=== PATIENT | female | born 1995 | race Caucasian/White ===

== ENCOUNTER → 2024-05-06 15:01 | Outpatient (CLI) | payer OTHER, SELFPAY ==
[2024-05-06 16:52] LABS: Urine Chlamydia NOT DETECTED; Urine N gonorrhoeae NOT DETECTED
== END ==
PROVIDERS: Visit Provider Obstetrics & Gynecology
DX: Z34.91 Encounter for supervision of normal pregnancy, unspecified, first trimester (principal)
CPT/HCPCS: 87491; 87591

== ENCOUNTER → 2024-05-16 11:02 | Outpatient (CLI) | payer OTHER, SELFPAY ==
--- NOTE | 2024-05-16 11:03 | DI.US.S_ITS ---
PROCEDURE: US OB LIMITED INDICATIONS: bleeding in late first trimester, assess for YULIYA OUTSIDE/PRIOR DATING DATA: Last menstrual period (LMP): 01/31/2024. LMP-based estimated date of delivery (TAMMIE): 11/06/2024. First dating scan (date and location): 05/06/2024. Estimated date of delivery (TAMMIE) from first dating scan: 11/10/2024. The calculations are made using the clinical TAMMIE of 11/06/2024. TECHNIQUE: Real-time scanning was performed of the fetus, with image documentation. Endovaginal scanning: Performed. COMPARISON: None. FINDINGS: A single living intrauterine gestation is present. Presentation: Transverse Placenta: Placental position is posterior, without previa. Low lying placenta, with the inferior margin of the placenta approximately 0.7 cm from the internal os Amniotic fluid index: 12.1 cm, normal range is 5-24 cm. Single deepest vertical pocket is 5.1 cm. heart rate: 155 beats per minute. Maternal cervical canal: 3.9 cm long. Normal lower limit is 2.5 cm. Clinically estimated gestational age: 15 weeks 1 day IMPRESSION: Single living intrauterine at 15 weeks 1 day, TAMMIE 09/05/2025. Low lying placenta, with the inferior margin of the placenta approximately 0.7 cm from the internal os. Dictated by: Constantin Ahmadi M.D. on 05/17/2024 at 9:56 Approved by: Constantin Ahmadi M.D. on 05/17/2024 at 9:58
[2024-05-16 13:33] LABS: Add Manual Diff / Slide Review NO; Basophils Absolute Auto 0 /uL (0-100); Basophils Percent Auto 0.4 % (0-2); Eosinophils Absolute Auto 0 /uL (0-450); Eosinophils Percent Auto 0.7 % (2-4); Hematocrit 38.3 % (36-46); Hemoglobin 13.1 g/dL (12.0-16.0); Lymphocytes Absolute Auto 1900 /uL (1100-4500); Lymphocytes Percent Auto 27.1 % (25-40); Mean Corpuscular HGB Conc 34.1 % (30-36); Mean Corpuscular Volume 84.9 fL (80-100); Monocytes Absolute Auto 400 /uL (0-900); Monocytes Percent Auto 5.2 % (3-14); Neutrophils Absolute Auto 4800 /uL (1500-7000); Neutrophils Percent Auto 66.6 % (50-75); Platelet Count 260 X10^3/uL (150-400); Red Blood Cell Count 4.51 X10^6/uL (4.0-5.2); White Blood Cell Count 7.2 X10^3/uL (4.5-11.0)
[2024-05-16 13:53] LABS: Alanine Aminotransferase 14 IU/L (<35); Aspartate Aminotransferase 25 IU/L (14-36); BUN Creatinine Ratio 15.1 (6-22); Blood Urea Nitrogen 8 mg/dL (7-17); Estimated Glomerular Filt Rate > 60 mL/min (>60); Uric Acid 4.8 mg/dL (2.5-6.2)
[2024-05-16 18:12] LABS: HIV 1 & 2 Ab/Ag 4th Gen Combo NEGATIVE (NEGATIVE); Hep C Virus Ab w/Reflex Quant NEGATIVE s/c (NEGATIVE)
[2024-05-16 18:13] LABS: Hepatitis B Surface Antigen NEGATIVE s/c (NEGATIVE); Rubella Antibody IgG 12.4 IU/mL (>15)
[2024-05-17 06:11] LABS: RPR Screen Non Reactive (Non Reactive)
[2024-05-17 12:13] LABS: Varicella IgG Antibody 2456 index (Immune >165)
== END ==
PROVIDERS: Referring Provider Obstetrics & Gynecology; Visit Provider Obstetrics & Gynecology
DX: O20.9 Hemorrhage in early pregnancy, unspecified (principal); O09.292 Supervision of pregnancy with other poor reproductive or obstetric history, second trimester; O99.282 Endocrine, nutritional and metabolic diseases complicating pregnancy, second trimester; E28.2 Polycystic ovarian syndrome; O44.42 Low lying placenta NOS or without hemorrhage, second trimester; Z3A.15 15 weeks gestation of pregnancy
CPT/HCPCS: 36415; 76815; 76817; 80055; 82565; 83036; 84450; 84460; 84520; 84550; 86787; 86803; 86850; 86900; 86901; 87086; 87389

== ENCOUNTER → 2024-05-26 12:13 | Outpatient (CLI) | payer OTHER, SELFPAY ==
[2024-05-26 14:00] LABS: Alanine Aminotransferase 15 IU/L (<35); Albumin 4.2 g/dL (3.5-5.0); Albumin Globulin Ratio 1.4 (1.0-2.8); Alkaline Phosphatase 64 U/L (38-126); Aspartate Aminotransferase 23 IU/L (14-36); BUN Creatinine Ratio 10.4 (6-22); Bilirubin Total 0.4 mg/dL (0.2-1.3); Blood Urea Nitrogen 5 mg/dL (7-17); Calcium 9.6 mg/dL (8.4-10.2); Carbon Dioxide 22 mmol/L (22-32); Chloride 105 mmol/L (98-107); Estimated Glomerular Filt Rate > 60 mL/min (>60); Globulin 3.1 g/dL (1.7-4.1); Glucose 78 mg/dL (70-100); HEMOLYSIS < 15 (0-50); Potassium 3.5 mmol/L (3.4-5.1); Sodium 135 mmol/L (137-145); Total Protein 7.3 g/dL (6.3-8.2)
[2024-05-28 21:07] LABS: AFP Value 29.8 ng/mL (.); Gest Age on Col Date 16.6 weeks (.); Insulin Dep Diabetes No (.); OSBR Risk 1IN 10000 (.); Results Report (.); Test Results *Screen Negative* (.)
== END ==
PROVIDERS: Referring Provider Obstetrics & Gynecology; Visit Provider Obstetrics & Gynecology
DX: E23.2 Diabetes insipidus (principal); O09.299 Supervision of pregnancy with other poor reproductive or obstetric history, unspecified trimester; Z3A.16 16 weeks gestation of pregnancy
CPT/HCPCS: 36415; 80053; 82105

== ENCOUNTER 2024-07-04 10:52 | Observation (INO) | payer OTHER, SELFPAY ==
[2024-07-04 11:54] LABS: Add Manual Diff / Slide Review NO; Basophils Absolute Auto 0 /uL (0-100); Basophils Percent Auto 0.7 % (0-2); Eosinophils Absolute Auto 100 /uL (0-450); Hematocrit 34.3 % (36-46); Hemoglobin 11.7 g/dL (12.0-16.0); Lymphocytes Absolute Auto 2100 /uL (1100-4500); Lymphocytes Percent Auto 30.7 % (25-40); Mean Corpuscular Hemoglobin 28.7 PG (26-34); Mean Corpuscular Volume 84.5 fL (80-100); Monocytes Absolute Auto 500 /uL (0-900); Monocytes Percent Auto 6.6 % (3-14); Neutrophils Absolute Auto 4200 /uL (1500-7000); Platelet Count 250 X10^3/uL (150-400); Red Blood Cell Count 4.06 X10^6/uL (4.0-5.2); Red Cell Distribution Width 13.7 % (11.6-14.8); White Blood Cell Count 6.9 X10^3/uL (4.5-11.0)
[2024-07-04 11:59] LABS: Creatinine Urine Random 43.63 mg/dL; Protein (Total) Urine Random 7 mg/dL (0-12); Protein Creatinine Ratio Urine 0.16 GRAM/24H
[2024-07-04 12:05] LABS: Alanine Aminotransferase 16 IU/L (<35); Albumin 4.1 g/dL (3.5-5.0); Albumin Globulin Ratio 1.3 (1.0-2.8); Alkaline Phosphatase 71 U/L (38-126); Aspartate Aminotransferase 23 IU/L (14-36); BUN Creatinine Ratio 11.4 (6-22); Bilirubin Total 0.4 mg/dL (0.2-1.3); Blood Urea Nitrogen 5 mg/dL (7-17); Calcium 9.3 mg/dL (8.4-10.2); Carbon Dioxide 23 mmol/L (22-32); Chloride 105 mmol/L (98-107); Estimated Glomerular Filt Rate > 60 mL/min (>60); Globulin 3.2 g/dL (1.7-4.1); Glucose 74 mg/dL (70-100); HEMOLYSIS < 15 (0-50); Potassium 3.7 mmol/L (3.4-5.1); Sodium 136 mmol/L (137-145); Total Protein 7.3 g/dL (6.3-8.2); Uric Acid 4.2 mg/dL (2.5-6.2)
--- NOTE | 2024-07-04 12:26 | P.TNLD_ITS ---
Visit Information Visit Information Date of evaluation: 07/04/24 Primary OB Provider: Sonia Nguyen On-call OB Provider: Ileana Hazel Reason for Evaluation: Yes other Comments/Additional reasons for admission: 7 para 2 at 22 weeks by dates with significant medical issues after brain tumor removal who comes in complaining of severe headache that is not going away previously, pain on the right side of her neck that comes and goes, nausea and vomiting and elevated blood pressures. Vital Signs Vital Signs: Patient was here for approximately 1 hour. Blood pressure 125/72 to 146/80. Temperature 36.3?. Pulse 100 PFSH Medical History (Updated 07/04/24 @ 12:51 by Ileana Hazel MD) Antepartum bleeding, first trimester Craniopharyngioma (~2015) IUGR (intrauterine growth restriction) Preeclampsia Surgical History (Updated 04/26/24 @ 16:04 by Irina Smith RN) History of tonsillectomy History of removal of skin mole [place] teeth extracted Status post breast reduction History of craniotomy Family History (Updated 04/26/24 @ 15:47 by Irina Smith RN) Father Heart attack Hypertension Mother Hypothyroidism Diabetes mellitus Hypertension Hyperlipidemia Brother Crohn's disease Grandmother Breast cancer Social History marital status: number of children: 2 household members: spouse and children lives independently: Yes caregiver/support person: Yes housing: house pets and animals: No education level: college occupational status: employed current occupational exposures/hazards: Yes special maxi needs: No travel history: recent seatbelt use: always water heater temp set < 120 deg: Yes working smoke detector in home: Yes fire extinguisher in home: Yes carbon monox detector in home: Yes firearms in home: Yes firearms unloaded and locked: Yes do you feel safe at home: Yes Smoking Status: Never smoker second hand exposure: No alcohol intake: former substance use type: does not use during the past year weight has: other well-balanced diet: daily or most days daily servings fruits/ve or more times/day caffeine: Yes Type(s) of exercise: walking frequency: daily duration: 15-30 minutes/day Review of Systems Review of Systems Narrative: Patient denies any visual changes. Headache is similar just not going away as previously. Complains of intermittent right neck pain. Patient has nausea and occasional vomiting when she has her pain. Patient states at home when she checks her blood pressure when she is in pain her blood pressure can be diastolic of over 100. Other times her blood pressure is normal. Patient denies epigastric pain. No vaginal bleeding. Patient is still not feeling the baby move yet. Exam Narrative Exam Narrative: HEENT exam within normal limits. Pupils are equal and reactive to light. Cranial nerves intact. No masses or tenderness in the area the right anterior neck where the patient states she has been having pain that comes and goes. Lungs are clear to auscultation percussion. Heart is regular rate and rhythm no S3-S4 murmurs. Abdomen is soft, nontender. heart tones 156. Extremities without edema and nontender. Objective Labs 07/04/24 11:40 07/04/24 11:40 Labs: Laboratory Results - last 24 hr 07/04/24 07/04/24 11:00 11:40 WBC 6.9 RBC 4.06 Hgb 11.7 L Hct 34.3 L MCV 84.5 MCH 28.7 MCHC 34.0 RDW 13.7 Plt Count 250 Neut % (Auto) 61.0 Lymph % (Auto) 30.7 [place] % (Auto) 6.6 Eos % (Auto) 1.0 L Baso % (Auto) 0.7 Neut # (Auto) 4200 Lymph # (Auto) 2100 [place] # (Auto) 500 Eos # (Auto) 100 Baso # (Auto) 0 Sodium 136 L Potassium 3.7 Chloride 105 Carbon Dioxide 23 BUN 5 L Creatinine 0.44 L Estimated GFR > 60 BUN/Creatinine Ratio 11.4 Glucose 74 Uric Acid 4.2 Calcium 9.3 Total Bilirubin 0.4 AST 23 ALT 16 Alkaline Phosphatase 71 Total Protein 7.3 Albumin 4.1 Globulin 3.2 Albumin/Globulin Ratio 1.3 U Random Total Protein 7 Urine Creatinine 43.63 Protein/Creatinin Ratio 0.16 Evaluation Evaluation Baseline heart rate: 156 Category of Tracing: Appropriate for gestational age Diagnosis, Plan/Disposition Final Diagnosis (1) Hypertension affecting in second trimester: Status: Acute (2) History of pre-eclampsia: Status: Acute (3) Migraine: Status: Acute Problem details: frequent; started w/ brain surgery, much worse since 2nd baby, hasn't found any useful Tx. Planning to establish @ headache clinic soon. (4) 22 weeks gestation of : Status: Acute (5) IUGR (intrauterine growth restriction): Status: Acute Problem details: 1st baby 4lb 10oz, 2nd 5lb Plan/Disposition Plan: Patient with negative PIH labs. Patient unable to take nonsteroidal anti- inflammatories. She has had no relief in the past with migraine Triptan medications, she is currently taking Tylenol and oxycodone. Patient has neck pain maybe muscle spasms. Prescription for cyclobenzaprine sent to her pharmacy. Patient very tearful that her baby is IUGR. She was on blood pressure medicine her last but has not been started on blood pressure medicine this because most of the time her blood pressure is better. Prescription for labetalol 100 mg b.i.d. she is as well as nifedipine 10 [address] could [address] under the tongue for an elevated blood pressure sent to her pharmacy. She does have an appointment with [facility] in 2 weeks. Advised her she could call them to discuss whether she should start the blood pressure medicine or not. Note written for patient to be off work the rest of and a note written to allow her to take off work so he can care for their 2 children while she takes her medications. OB Disposition: home
== END 2024-07-04 12:26 | disposition home or self-care (01) ==
PROVIDERS: Specialist; Admitting Provider Obstetrics & Gynecology; Referring Provider Obstetrics & Gynecology; Visit Provider Obstetrics & Gynecology
DX: O16.2 Unspecified maternal hypertension, second trimester (principal); O36.5920 Maternal care for other known or suspected poor fetal growth, second trimester, not applicable or unspecified; G43.909 Migraine, unspecified, not intractable, without status migrainosus; O99.352 Diseases of the nervous system complicating pregnancy, second trimester; Z87.59 Personal history of other complications of pregnancy, childbirth and the puerperium; Z3A.22 22 weeks gestation of pregnancy
CPT/HCPCS: 80053; 84550; 85025; G0378; G0379

== ENCOUNTER → 2024-08-10 10:35 | Outpatient (CLI) | payer OTHER, SELFPAY ==
[2024-08-10 12:57] LABS: GTT (PREG) 1 Hour PP 50gm Dose 85 mg/dL (76-139)
[2024-08-10 13:01] LABS: Hemoglobin 10.2 g/dL (12.0-16.0)
== END ==
PROVIDERS: Referring Provider Obstetrics & Gynecology; Visit Provider Obstetrics & Gynecology
DX: Z34.82 Encounter for supervision of other normal pregnancy, second trimester (principal); Z3A.26 26 weeks gestation of pregnancy
CPT/HCPCS: 36415; 82950; 85014; 85018

== ENCOUNTER 2024-08-25 11:32 | Outpatient (CLI) | payer OTHER, SELFPAY | END 2024-08-25 12:15 | disposition home or self-care (01) | LOC: OB 08-29 08:45 | PROVIDERS: Referring Provider Obstetrics & Gynecology; Visit Provider Obstetrics & Gynecology | DX: O10.913 Unspecified pre-existing hypertension complicating pregnancy, third trimester (principal); O36.5930 Maternal care for other known or suspected poor fetal growth, third trimester, not applicable or unspecified; O32.1XX0 Maternal care for breech presentation, not applicable or unspecified; Z3A.29 29 weeks gestation of pregnancy | CPT/HCPCS: 59025; G0378; G0379 ==

== ENCOUNTER 2024-09-05 09:17 | Outpatient (CLI) | payer OTHER, SELFPAY | END 2024-09-05 10:10 | disposition home or self-care (01) | LOC: OB 09-06 08:10 | PROVIDERS: Referring Provider Obstetrics & Gynecology; Visit Provider Obstetrics & Gynecology | DX: O10.913 Unspecified pre-existing hypertension complicating pregnancy, third trimester (principal); O36.5930 Maternal care for other known or suspected poor fetal growth, third trimester, not applicable or unspecified; O32.1XX0 Maternal care for breech presentation, not applicable or unspecified; Z3A.31 31 weeks gestation of pregnancy | CPT/HCPCS: 59025; G0378; G0379 ==

== ENCOUNTER 2024-09-08 11:06 | Outpatient (CLI) | payer OTHER, SELFPAY | END 2024-09-08 12:28 | disposition home or self-care (01) | LOC: OB 09-13 08:33 | PROVIDERS: Referring Provider Obstetrics & Gynecology; Visit Provider Obstetrics & Gynecology | DX: O26.893 Other specified pregnancy related conditions, third trimester (principal); R10.9 Unspecified abdominal pain; O10.913 Unspecified pre-existing hypertension complicating pregnancy, third trimester; O36.5930 Maternal care for other known or suspected poor fetal growth, third trimester, not applicable or unspecified; Z3A.31 31 weeks gestation of pregnancy | CPT/HCPCS: 59025; G0378; G0379 ==

== ENCOUNTER 2024-09-12 10:25 | Observation (INO) | payer OTHER, SELFPAY | END 2024-09-12 11:00 | disposition home or self-care (01) | PROVIDERS: Admitting Provider Obstetrics & Gynecology; Referring Provider Obstetrics & Gynecology; Visit Provider Obstetrics & Gynecology | DX: O10.913 Unspecified pre-existing hypertension complicating pregnancy, third trimester (principal); O36.5930 Maternal care for other known or suspected poor fetal growth, third trimester, not applicable or unspecified; Z3A.32 32 weeks gestation of pregnancy | CPT/HCPCS: 59025; G0378; G0379 ==

== ENCOUNTER 2024-09-19 10:18 | Outpatient (CLI) | payer OTHER, SELFPAY ==
--- NOTE | 2024-09-19 11:51 | P.TNLD_ITS ---
Visit Information Visit Information Date of evaluation: 09/19/24 Primary OB Provider: Sonia Nguyen Reason for Evaluation: Yes non-stress test non-stress test reason: other (FGR) [facility] Medical History (Updated 09/19/24 @ 10:27 by Sonia Nguyen MD) Antepartum bleeding, first trimester Craniopharyngioma (~2016) IUGR (intrauterine growth restriction) Preeclampsia Surgical History (Updated 04/26/24 @ 16:04 by Irina Smith RN) History of tonsillectomy History of removal of skin mole [place] teeth extracted Status post breast reduction History of craniotomy Family History (Updated 04/26/24 @ 15:47 by Irina Smith RN) Father Heart attack Hypertension Mother Hypothyroidism Diabetes mellitus Hypertension Hyperlipidemia Brother Crohn's disease Grandmother Breast cancer Social History marital status: number of children: 2 household members: spouse and children lives independently: Yes caregiver/support person: Yes housing: house pets and animals: No education level: college occupational status: employed current occupational exposures/hazards: Yes special maxi needs: No travel history: recent seatbelt use: always water heater temp set < 120 deg: Yes working smoke detector in home: Yes fire extinguisher in home: Yes carbon monox detector in home: Yes firearms in home: Yes firearms unloaded and locked: Yes do you feel safe at home: Yes Smoking Status: Never smoker second hand exposure: No alcohol intake: former substance use type: does not use during the past year weight has: other well-balanced diet: daily or most days daily servings fruits/ve or more times/day caffeine: Yes Type(s) of exercise: walking frequency: daily duration: 15-30 minutes/day Evaluation Evaluation Baseline heart rate: 155 Variability: Moderate (11-25) monitor accelerations: Prolonged (to 180's-200) Monitor Decelerations: Absent Status: Category l Comments: Pt has rash on right groin. Exam: Erythema with satellite lesions. Diagnosis, Plan/Disposition Plan/Disposition Plan: Assessment: 33+2 wks gestation Prolonged accelerations FGR Yeast of the skin of the right groin Plan: [facility] F/U with MFM tomorrow Nystatin oint to right groin BID for 10-14 days
== END 2024-09-19 11:45 | disposition home or self-care (01) ==
LOC: LABOR 11:48 → OB 09-22 06:09
PROVIDERS: Referring Provider Obstetrics & Gynecology; Visit Provider Obstetrics & Gynecology
DX: O36.8330 Maternal care for abnormalities of the fetal heart rate or rhythm, third trimester, not applicable or unspecified (principal); O98.813 Other maternal infectious and parasitic diseases complicating pregnancy, third trimester; B37.89 Other sites of candidiasis; Z3A.33 33 weeks gestation of pregnancy
CPT/HCPCS: 59025; G0378; G0379

== ENCOUNTER 2024-09-22 15:15 | Outpatient (CLI) | payer OTHER, SELFPAY ==
[2024-09-22 16:05] LABS: Creatinine Urine Random 20.55 mg/dL; Protein (Total) Urine Random 14 mg/dL (0-12); Protein Creatinine Ratio Urine 0.68 GRAM/24H
[2024-09-22 16:12] LABS: Add Manual Diff / Slide Review NO; Basophils Absolute Auto 0 /uL (0-100); Basophils Percent Auto 0.3 % (0-2); Eosinophils Absolute Auto 0 /uL (0-450); Eosinophils Percent Auto 0.2 % (2-4); Hematocrit 34.3 % (36-46); Hemoglobin 11.4 g/dL (12.0-16.0); Lymphocytes Absolute Auto 2700 /uL (1100-4500); Lymphocytes Percent Auto 24.5 % (25-40); Mean Corpuscular HGB Conc 33.2 % (30-36); Mean Corpuscular Hemoglobin 28.4 PG (26-34); Mean Corpuscular Volume 85.5 fL (80-100); Monocytes Absolute Auto 800 /uL (0-900); Monocytes Percent Auto 7.5 % (3-14); Neutrophils Absolute Auto 7300 /uL (1500-7000); Neutrophils Percent Auto 67.5 % (50-75); Platelet Count 212 X10^3/uL (150-400); Red Blood Cell Count 4.01 X10^6/uL (4.0-5.2); Red Cell Distribution Width 19.7 % (11.6-14.8); White Blood Cell Count 10.8 X10^3/uL (4.5-11.0)
[2024-09-22 16:24] LABS: Alanine Aminotransferase 28 IU/L (<35); Albumin 3.5 g/dL (3.5-5.0); Albumin Globulin Ratio 1.1 (1.0-2.8); Alkaline Phosphatase 88 U/L (38-126); Aspartate Aminotransferase 32 IU/L (14-36); BUN Creatinine Ratio 17.1 (6-22); Bilirubin Total 0.3 mg/dL (0.2-1.3); Blood Urea Nitrogen 7 mg/dL (7-17); Calcium 9.1 mg/dL (8.4-10.2); Carbon Dioxide 21 mmol/L (22-32); Chloride 105 mmol/L (98-107); Estimated Glomerular Filt Rate > 60 mL/min (>60); Globulin 3.1 g/dL (1.7-4.1); Glucose 91 mg/dL (70-100); HEMOLYSIS < 15 (0-50); Potassium 3.6 mmol/L (3.4-5.1); Sodium 132 mmol/L (137-145); Total Protein 6.6 g/dL (6.3-8.2)
== END 2024-09-22 17:03 | disposition home or self-care (01) ==
LOC: OB 09-23 10:11
PROVIDERS: Referring Provider Obstetrics & Gynecology; Visit Provider Obstetrics & Gynecology
DX: O10.913 Unspecified pre-existing hypertension complicating pregnancy, third trimester (principal); O36.5930 Maternal care for other known or suspected poor fetal growth, third trimester, not applicable or unspecified; Z3A.33 33 weeks gestation of pregnancy
CPT/HCPCS: 36415; 59025; 80053; 82570; 84156; 85025; G0378; G0379

== ENCOUNTER 2024-09-23 18:13 | Inpatient (IN) | payer OTHER, SELFPAY ==
--- NOTE | 2024-09-23 18:34 | P.HPOB_ITS ---
OB HPI Date/Time Date of admission: 09/23/24 Date Patient Seen: 09/23/24 Time Patient Seen: 18:35 History of Present Condition Chief complaint: labor TAMMIE Calculator 2 Estimated Delivery Date Method Current WG Current Estimate 11/06/24 LMP (Uncertain) 33w 5d Other Estimates 11/12/24 Ultrasound #1 32w 6d Estimated Gestational Age (weeks): 33+5 : 7 Para: 2 care: good care, initiated at week # (10), number of visits (10) and pounds weight gain (16) Dating criteria OB: LMP confirmed by 1st trimester US Ultrasounds: normal 1st trimester US and abnormal US findings (echogenic bowel) Obstetrical complications: gestational hypertension (on Labetolol 100mg BID) and growth restriction (4%ile ) Medical complications OB: neurological (chronic debilitating migraines, empty sella syndrome, diabetes insipidus) Preadmission Labs Last OB Lab Results: 2 Blood Type O Positive 05/16/24 12:17 Antibody Screen Negative 05/16/24 12:17 Hct 36.6 % (36-46) 09/23/24 19:05 Hgb 12.2 g/dL (12.0-16.0) 09/23/24 19:05 Hep Bs Antigen Negative s/c (NEGATIVE) 05/16/24 12:17 Hepatitis C Antibody Negative s/c (NEGATIVE) 05/16/24 12:17 Rubella Antibody 12.4 IU/mL (>15) L 05/16/24 12:17 VZV IgG Antibody 2456 index (Immune >165) 05/16/24 12:17 Glucose 1 Hr 50 gm 85 mg/dL (76-139) 08/10/24 12:21 Hemoglobin A1c 5.0 % (4.0-6.0) 05/16/24 12:17 -: Chlamydia screen: negative, Gonorrhea screen: negative and Urine: negative -: PAP smear: Normal Genetic Screens: Cell-free DNA: Normal (low risk female) and Alpha-fetoprotein: Normal External Labs -: Urine: negative Prior (ies) Past Pregnancies Del. Date GA/Weeks Labor Lgth Wt Sex Route Outcome Anesthesia Place Delv Breastfeed Preg Comp Name 12/22/20 36.6 4 lb 10 oz Female vaginal live - epidural [facility] Attempted intrauterine growth restr induced hyper- [place] 03/21/21 6-8 spontaneous 06/21/21 6-8 spontaneous 09/21/21 6-8 spontaneous 11/19/21 6-8 spontaneous 01/09/23 36.6 5 lb Male vaginal live - ep idural [facility] unable to produce pre-eclampsia intrauterine growth restr [place] Delivery Date: 03/21/21 Last Updated by: Irina Smith RN passed spontaneously, no complications Delivery Date: 06/21/21 Last Updated by: Irina Smith RN passed spontaneously, no complications Delivery Date: 09/21/21 Last Updated by: Irina Smith RN passed spontaneously, no complications Delivery Date: 11/19/21 Last Updated by: Irina Smith RN passed spontaneously, no complications Hx # Term Pregnancies: 0 Hx # Pregnancies: 2 Number of Living Children: 2 Multiple births: 0 Spontaneous abortions: 4 Ectopic pregnancies: 0 Elective abortions: 0 Evaluation Evaluation Baseline heart rate: 150 Variability: Moderate (11-25) monitor accelerations: Prolonged (episodes of prolonged tachy) Monitor Decelerations: Absent Contraction Frequency (minutes): 2 Uterine Contraction Intensity: Moderate Status: Category l Dilation (cm): 3 Effacement (%): 80 station: -1 Position of cervix: mid Consistency: soft [facility] Medical History (Updated 09/19/24 @ 10:27 by Sonia Nguyen MD) Antepartum bleeding, first trimester Craniopharyngioma (~2016) IUGR (intrauterine growth restriction) Preeclampsia Surgical History (Updated 04/26/24 @ 16:04 by Irina Smith RN) History of tonsillectomy History of removal of skin mole [place] teeth extracted Status post breast reduction History of craniotomy Family History (Updated 04/26/24 @ 15:47 by Irina Smith RN) Father Heart attack Hypertension Mother Hypothyroidism Diabetes mellitus Hypertension Hyperlipidemia Brother Crohn's disease Grandmother Breast cancer Social History marital status: number of children: 2 household members: spouse and children lives independently: Yes caregiver/support person: Yes housing: house pets and animals: No education level: college occupational status: employed current occupational exposures/hazards: Yes special maxi needs: No travel history: recent seatbelt use: always water heater temp set < 120 deg: Yes working smoke detector in home: Yes fire extinguisher in home: Yes carbon monox detector in home: Yes firearms in home: Yes firearms unloaded and locked: Yes do you feel safe at home: Yes Smoking Status: Never smoker second hand exposure: No alcohol intake: former substance use type: does not use during the past year weight has: other well-balanced diet: daily or most days daily servings fruits/ve or more times/day caffeine: Yes Type(s) of exercise: walking frequency: daily duration: 15-30 minutes/day Meds Home Medications and Allergies Home Medications Medication Instructions Recorded Confirmed Type hydrocortisone 20 mg tablet 20 mg PO DAILY 04/26/24 09/22/24 History vitamin-ferrous sulfate tab PO 04/26/24 09/22/24 History 27 mg iron-folic acid 0.8 mg tablet cyclobenzaprine 5 mg tablet 5 mg PO TID PRN muscle spasm #20 07/04/24 09/22/24 Rx tabs nifedipine 10 mg capsule 10 mg PO Q6H PRN hypertension #10 07/04/24 09/22/24 Rx caps metformin 1,000 mg tablet 1,000 mg PO BID Diabetes insipidus 07/20/24 09/22/24 Rx #60 tabs ondansetron 8 mg disintegrating 8 mg PO Q8H PRN nausea and 08/10/24 09/22/24 Rx tablet vomiting #30 tabs pantoprazole 40 mg tablet,delayed 40 mg PO DAILY #30 tabs 08/10/24 09/22/24 Rx release (Protonix) labetalol 100 mg tablet 100 mg PO BID for blood pressure 08/30/24 09/22/24 Rx #60 tabs oxycodone 10 mg tablet 10 mg PO BID PRN pain #30 tabs 09/08/24 09/22/24 Rx promethazine 25 mg tablet 25 mg PO TID PRN nausea #30 tabs 09/08/24 09/22/24 Rx nystatin 100,000 unit/gram topical 1 applic topical BID #30 grams 09/19/24 09/22/24 Rx ointment Allergies Allergy/AdvReac Type Severity Reaction Status Date / Time NSAIDS (Non-Steroidal Allergy Intermediate swelling Verified 09/22/24 14:19 Anti-Inflamma gadalinium Allergy Intermediate Hives Uncoded 09/22/24 14:19 OB Exam Narrative Exam Narrative: Generally: Patient is sitting up in bed, breathing through contractions Lungs: CTA bilat CV: RRR FH: 33 cm EFW: 3#5oz Ext: Trace edema Objective Labs 09/23/24 19:05 Assessment and Plan Assessment and Plan Assessment and Plan narrative: Assessment: 28 year old at 33+5 wks gestation in PTL complicated by FGR (4%ile) Gest HTN, chronic debilitating migraines, empty sella syndrome and adrenal insufficiency Plan: Amoxicillin 2 gm IV load and then 1 gm q 4 hours GBS swab obtained Indocin 50mg PO x 1, patient refused Will recheck cervix in 90 min, if no change, will transfer to Discussed with Dr. Solis Moore at Addendum: No cervical change in 2 hours Transfer to [facility] Discussed with Dr. Solis Moore Patient to go by Cayla BLACK Time-Based Coding :: [TOTAL MINUTES] spent with patient and on the chart (including review of chart, obtaining history, exam, reviewing outside data, placing orders, documenting exam and treatment plan, and counseling patient) on [DATE].
[2024-09-23 19:38] LABS: Add Manual Diff / Slide Review SLIDE REVIEW; Basophils Absolute Auto 100 /uL (0-100); Basophils Percent Auto 0.9 % (0-2); Eosinophils Absolute Auto 100 /uL (0-450); Eosinophils Percent Auto 0.5 % (2-4); Hematocrit 36.6 % (36-46); Hemoglobin 12.2 g/dL (12.0-16.0); Lymphocytes Absolute Auto 3400 /uL (1100-4500); Mean Corpuscular HGB Conc 33.5 % (30-36); Mean Corpuscular Hemoglobin 28.4 PG (26-34); Mean Corpuscular Volume 84.9 fL (80-100); Monocytes Absolute Auto 900 /uL (0-900); Monocytes Percent Auto 6.6 % (3-14); Neutrophils Absolute Auto 8700 /uL (1500-7000); Platelet Count 246 X10^3/uL (150-400); Red Blood Cell Count 4.31 X10^6/uL (4.0-5.2); Red Cell Distribution Width 19.8 % (11.6-14.8); White Blood Cell Count 13.1 X10^3/uL (4.5-11.0)
[2024-09-23] MEDS: AMPICILLIN 2,000 MG in SODIUM CHLORIDE 0.9% 100 ML 200 MG IV (20:49)
[2024-09-23 20:52] LABS: RBC Morphology Normal Morphology
[2024-09-23 20:53] LABS: Platelet Estimate Adequate on smear
[2024-09-23] MEDS: fentaNYL 100 MCG/2 ML INJ 50 MCG IV (21:15)
[2024-09-23] MEDS: ONDANSETRON 4 MG/2 ML INJ IV (21:15)
== END 2024-09-23 21:45 | disposition short-term general hospital (02) | DRG 998 ==
PROVIDERS: Admitting Provider Obstetrics & Gynecology; Referring Provider Obstetrics & Gynecology; Visit Provider Obstetrics & Gynecology
DX: O76 Abnormality in fetal heart rate and rhythm complicating labor and delivery (principal); O24.113 Pre-existing type 2 diabetes mellitus, in pregnancy, third trimester; E27.40 Unspecified adrenocortical insufficiency; O36.5930 Maternal care for other known or suspected poor fetal growth, third trimester, not applicable or unspecified; Z3A.33 33 weeks gestation of pregnancy; O13.3 Gestational [pregnancy-induced] hypertension without significant proteinuria, third trimester; Z79.84 Long term (current) use of oral hypoglycemic drugs; O99.891 Other specified diseases and conditions complicating pregnancy; G43.809 Other migraine, not intractable, without status migrainosus
CPT/HCPCS: 59050; 85025; 86850; 86900; 86901; 96360; G0379; J0290; J2405; J3010

== ENCOUNTER 2024-09-25 14:03 | Observation (INO) | payer OTHER, SELFPAY ==
[2024-09-25 14:44] LABS: Add Manual Diff / Slide Review NO; Basophils Absolute Auto 100 /uL (0-100); Basophils Percent Auto 0.6 % (0-2); Eosinophils Absolute Auto 0 /uL (0-450); Eosinophils Percent Auto 0.4 % (2-4); Hematocrit 39.9 % (36-46); Hemoglobin 12.9 g/dL (12.0-16.0); Lymphocytes Absolute Auto 2600 /uL (1100-4500); Lymphocytes Percent Auto 21.2 % (25-40); Mean Corpuscular HGB Conc 32.4 % (30-36); Mean Corpuscular Hemoglobin 27.8 PG (26-34); Mean Corpuscular Volume 85.8 fL (80-100); Monocytes Absolute Auto 800 /uL (0-900); Monocytes Percent Auto 6.3 % (3-14); Neutrophils Absolute Auto 8700 /uL (1500-7000); Neutrophils Percent Auto 71.5 % (50-75); Platelet Count 230 X10^3/uL (150-400); Red Blood Cell Count 4.65 X10^6/uL (4.0-5.2); Red Cell Distribution Width 19.7 % (11.6-14.8); White Blood Cell Count 12.2 X10^3/uL (4.5-11.0)
[2024-09-25] MEDS: fentaNYL 100 MCG/2 ML INJ 50 MCG IV ×2 (14:44→16:34)
[2024-09-25] MEDS: LACTATED RINGERS 1,000 ML 100 ML IV ×2 (14:44→15:51)
--- NOTE | 2024-09-25 14:47 | PM.OBHP.IH.1 ---
OB HPI Date/Time Date of admission: 09/25/24 Date Patient Seen: 09/25/24 Time Patient Seen: 14:30 History of Present Condition Chief complaint: OBS OF LABOR TAMMIE Calculator Estimated Delivery Date Method Current WG Current Estimate 11/06/24 LMP (Uncertain) 34w 0d Other Estimates 11/12/24 Ultrasound #1 33w 1d Narrative: 28yo at 34w0d D=9wk US presents with recurrent labor. 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 Pt had similar presentation to facility 09/23/24 with persistent painful contractions, no cervical bladder changer 2h observation and flown to [facility] for further observation (3cm dilation). Patient states she was discharged to home 09/24 after 16h of no cervical change (450/-3), s/p BMZ x2. Today patient states that contractions never fully resolved but had previously become less frequent/less painful. Painful contractions resumed at approximately 11am today q1-3min and patient presented to birthing center 3h thereafter for evaluation. She reports some scant vaginal bleeding, denies jordana LOF, dysuria, +FM care: good care (co-managed with [facility] (Dr. 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 involvement of DiGeorge region, risk for type 1 hyperprolactinemia)) Medical complications OB: neurological (h/o diabetes insipidus s/p resection of craniopharyngioma on chronic steroids) External History Prior Pregnancies: G1 - late PTB (36.6), preE with severe features, IUGR --> developmental delay G2-5 - first trimester SAB (6-8wga) G6 - late PTB (36.6), preE with severe features, IUGR --> developmental delay, hydrocephalus G7 - current : 7 Para: 2 Preadmission Labs Last OB Lab Results: Blood Type O Positive 09/25/24 14:25 Antibody Screen Negative 09/25/24 14:25 Hct 39.9 % (36-46) 09/25/24 14:25 Hgb 12.9 g/dL (12.0-16.0) 09/25/24 14:25 Hep Bs Antigen Negative s/c (NEGATIVE) 05/16/24 12:17 Hepatitis C Antibody Negative s/c (NEGATIVE) 05/16/24 12:17 Rubella Antibody 12.4 IU/mL (>15) L 05/16/24 12:17 VZV IgG Antibody 2456 index (Immune >165) 05/16/24 12:17 Glucose 1 Hr 50 gm 85 mg/dL (76-139) 08/10/24 12:21 Hemoglobin A1c 5.0 % (4.0-6.0) 05/16/24 12:17 -: Chlamydia screen: negative, Gonorrhea screen: negative and Urine: negative Genetic Screens: Cell-free DNA: Abnormal External Labs -: Urine: negative Prior (ies) Past Pregnancies Del. Date GA/Weeks Labor Lgth Wt Sex Route Outcome Anesthesia Place Delv Breastfeed Preg Comp Name 12/22/20 36.6 4 lb 10 oz Female vaginal live - epidural [facility] Attempted intrauterine growth restr induced hyper- [place] 03/21/21 6-8 spontaneous 06/21/21 6-8 spontaneous 09/21/21 6-8 spontaneous 11/19/21 6-8 spontaneous 01/09/23 36.6 5 lb Male vaginal live - epidural [facility] unable to produce pre-eclampsia intrauterine growth restr [place] Delivery Date: 03/21/21 Last Updated by: Irina Smith RN passed spontaneously, no complications Delivery Date: 06/21/21 Last Updated by: Irina Smith RN passed spontaneously, no complications Delivery Date: 09/21/21 Last Updated by: Irina Smith RN passed spontaneously, no complications Delivery Date: 11/19/21 Last Updated by: Irina Smith RN passed spontaneously, no complications Hx # Pregnancies: 2 Number of Living Children: 2 Evaluation Evaluation Baseline heart rate: 145 Variability: Moderate (11-25) monitor accelerations: Present Monitor Decelerations: Absent Contraction Frequency (minutes): 2 Uterine Contraction Intensity: Mild Category of Tracing: Reactive Status: Category l Dilation (cm): 4 Effacement (%): 50 station: -4 Position of cervix: mid Consistency: medium [facility] Medical History (Updated 09/19/24 @ 10:27 by Sonia Nguyen MD) Antepartum bleeding, first trimester Craniopharyngioma (~2016) IUGR (intrauterine growth restriction) Preeclampsia Surgical History (Updated 04/26/24 @ 16:04 by Irina Smith RN) History of tonsillectomy History of removal of skin mole [place] teeth extracted Status post breast reduction History of craniotomy Family History (Updated 04/26/24 @ 15:47 by Irina Smith RN) Father Heart attack Hypertension Mother Hypothyroidism Diabetes mellitus Hypertension Hyperlipidemia Brother Crohn's disease Grandmother Breast cancer Social History marital status: number of children: 2 household members: spouse and children lives independently: Yes caregiver/support person: Yes housing: house pets and animals: No education level: college occupational status: employed current occupational exposures/hazards: Yes special maxi needs: No travel history: recent seatbelt use: always water heater temp set < 120 deg: Yes working smoke detector in home: Yes fire extinguisher in home: Yes carbon monox detector in home: Yes firearms in home: Yes firearms unloaded and locked: Yes do you feel safe at home: Yes Smoking Status: Never smoker second hand exposure: No alcohol intake: former substance use type: does not use during the past year weight has: other well-balanced diet: daily or most days daily servings fruits/ve or more times/day caffeine: Yes Type(s) of exercise: walking frequency: daily duration: 15-30 minutes/day Meds Home Medications and Allergies Home Medications Medication Instructions Recorded Confirmed Type hydrocortisone 20 mg tablet 20 mg PO DAILY 04/26/24 09/22/24 History vitamin-ferrous sulfate tab PO 04/26/24 09/22/24 History 27 mg iron-folic acid 0.8 mg tablet cyclobenzaprine 5 mg tablet 5 mg PO TID PRN muscle spasm #20 07/04/24 09/22/24 Rx tabs nifedipine 10 mg capsule 10 mg PO Q6H PRN hypertension #10 07/04/24 09/22/24 Rx caps metformin 1,000 mg tablet 1,000 mg PO BID Diabetes insipidus 07/20/24 09/22/24 Rx #60 tabs ondansetron 8 mg disintegrating 8 mg PO Q8H PRN nausea and 08/10/24 09/22/24 Rx tablet vomiting #30 tabs pantoprazole 40 mg tablet,delayed 40 mg PO DAILY #30 tabs 08/10/24 09/22/24 Rx release (Protonix) labetalol 100 mg tablet 100 mg PO BID for blood pressure 08/30/24 09/22/24 Rx #60 tabs oxycodone 10 mg tablet 10 mg PO BID PRN pain #30 tabs 09/08/24 09/22/24 Rx promethazine 25 mg tablet 25 mg PO TID PRN nausea #30 tabs 09/08/24 09/22/24 Rx nystatin 100,000 unit/gram topical 1 applic topical BID #30 grams 09/19/24 09/22/24 Rx ointment Allergies Allergy/AdvReac Type Severity Reaction Status Date / Time NSAIDS (Non-Steroidal Allergy Intermediate swelling Verified 09/22/24 14:19 Anti-Inflamma gadalinium Allergy Intermediate Hives Uncoded 09/22/24 14:19 Review of Systems Review of Systems ROS: Yes All systems reviewed with the patient and are negative except as otherwise documented OB Exam Vital signs Blood Pressure: 136/74 Pulse Rate: 95 Respiratory Rate: 20 Temperature: 97.0 F HENMT Head: normal to inspection and normocephalic Eyes General: appearance normal, both eyes and all related structures Cardio Rate: regular rate Extremities Lower extremity: Yes normal to inspection GI Inspection: normal to inspection Other: gravid, s < d neil cephalic External Female Exam: Yes normal external appearance Speculum Exam - Vagina: Yes normal appearance of the vagina Presentation: vertex Estimated Weight (lbs): 4 Objective Labs 09/25/24 14:25 09/25/24 14:25 Labs: Laboratory Results - last 24 hr 09/25/24 14:25 WBC 12.2 H RBC 4.65 Hgb 12.9 Hct 39.9 MCV 85.8 MCH 27.8 MCHC 32.4 RDW 19.7 H Plt Count 230 Neut % (Auto) 71.5 Lymph % (Auto) 21.2 L [place] % (Auto) 6.3 Eos % (Auto) 0.4 L Baso % (Auto) 0.6 Neut # (Auto) 8700 H Lymph # (Auto) 2600 [place] # (Auto) 800 Eos # (Auto) 0 Baso # (Auto) 100 Assessment and Plan Assessment and Plan Assessment and Plan narrative: 28yo at 34w0d d=9wk US presents with recurrent labor Recurrent PTL s/p BMZ x2, cat 1 tracing throughout no interval cervical bladder changer 2h pt refuses all tocolysis, resistant to transfer however ultimately accepts in shared decision making model given limitations of our facility for both maternal and safety pt accepted for transfer to [facility], Dr. Dang Bruno accepting transport via ground ALS, unable to fly due to weather Time-Based Coding :: [2.5 hours/150min] spent with patient and on the chart (including review of chart, obtaining history, exam, reviewing outside data, placing orders, documenting exam and treatment plan, and counseling patient) on [09/25/23].
[2024-09-25 14:53] LABS: Alanine Aminotransferase 28 IU/L (<35); Albumin Globulin Ratio 1.2 (1.0-2.8); Alkaline Phosphatase 108 U/L (38-126); Aspartate Aminotransferase 36 IU/L (14-36); BUN Creatinine Ratio 12.8 (6-22); Bilirubin Total 0.4 mg/dL (0.2-1.3); Blood Urea Nitrogen 6 mg/dL (7-17); Calcium 9.7 mg/dL (8.4-10.2); Carbon Dioxide 20 mmol/L (22-32); Chloride 105 mmol/L (98-107); Estimated Glomerular Filt Rate > 60 mL/min (>60); Globulin 3.3 g/dL (1.7-4.1); Glucose 94 mg/dL (70-100); HEMOLYSIS 33 (0-50); Potassium 3.7 mmol/L (3.4-5.1); Sodium 134 mmol/L (137-145); Total Protein 7.3 g/dL (6.3-8.2)
[2024-09-25] MEDS: ONDANSETRON 4 MG/2 ML INJ IV (15:02)
[2024-09-25 16:00] VITALS: BP 136/74; PULSE 95; RESP 20; TEMP 36.1
--- NOTE | 2024-09-25 16:32 | P.DS_ITS ---
History of Present Illness History of Present Illness Date Patient Seen: 09/25/24 Time Patient Seen: 16:32 Date of Onset of Symptoms: 09/23/24 Chief complaint: OBS OF LABOR Discharge Providers Provider Date of admission: 09/25/24 14:03 Discharge Date: 09/25/24 Consults: 09/25/24 14:34 Consult to Anesthesiology Urgent Comment: Consulting Provider: Anesthesiologist Reason for consultation: Epidural Discharge provider: Maribeth Gerard MD Summary Hospital Course Discharge Diagnosis: labor Hospital Course: see H&P Status at Discharge Cognitive/behavioral status at discharge: oriented Overall status at discharge: patient is back to baseline Time Spent with Patient Time spent: Greater than 30 minutes Exam Vital Signs (past 8 hours): - 09/25/24 16:00 Temperature 97.0 F L Pulse Rate 95 H Respiratory Rate 20 Blood Pressure 136/74 Const General: cooperative Nutritional Appearance: overweight Orientation: alert, awake and oriented x3 Limitations: mental status not altered Resp Effort & Inspection: normal respiratory effort and able to speak in complete sentences Cardio Pulses: normal peripheral pulses GI Other: gravid, size < dates Other: 4/50/-3, stable over 2h Skin General: no rashes or lesions noted Neuro General: patient alert, patient awake and patient oriented x3 Extrem General: normal to inspection Psych Mental Status: mental status grossly normal Judgment: fair Objective Labs 09/25/24 14:25 09/25/24 14:25 Labs: Laboratory Results - last 24 hr 09/25/24 14:25 WBC 12.2 H RBC 4.65 Hgb 12.9 Hct 39.9 MCV 85.8 MCH 27.8 MCHC 32.4 RDW 19.7 H Plt Count 230 Neut % (Auto) 71.5 Lymph % (Auto) 21.2 L [place] % (Auto) 6.3 Eos % (Auto) 0.4 L Baso % (Auto) 0.6 Neut # (Auto) 8700 H Lymph # (Auto) 2600 [place] # (Auto) 800 Eos # (Auto) 0 Baso # (Auto) 100 Sodium 134 L Potassium 3.7 Chloride 105 Carbon Dioxide 20 L BUN 6 L Creatinine 0.47 L Estimated GFR > 60 BUN/Creatinine Ratio 12.8 Glucose 94 Calcium 9.7 Total Bilirubin 0.4 AST 36 ALT 28 Alkaline Phosphatase 108 Total Protein 7.3 Albumin 4.0 Globulin 3.3 Albumin/Globulin Ratio 1.2 Blood Type O Positive Antibody Screen Negative REPLACED BY [facility] Medical History (Updated 09/19/24 @ 10:27 by Sonia Nguyen MD) Antepartum bleeding, first trimester Craniopharyngioma (~2016) IUGR (intrauterine growth restriction) Preeclampsia Surgical History (Updated 04/26/24 @ 16:04 by Irina Smith, RN) History of tonsillectomy History of removal of skin mole [place] teeth extracted Status post breast reduction History of craniotomy Family History (Updated 04/26/24 @ 15:47 by Irina Smith, OSVALDO) Father Heart attack Hypertension Mother Hypothyroidism Diabetes mellitus Hypertension Hyperlipidemia Brother Crohn's disease Grandmother Breast cancer Social History marital status: number of children: 2 household members: spouse and children lives independently: Yes caregiver/support person: Yes housing: house pets and animals: No education level: college occupational status: employed current occupational exposures/hazards: Yes special maxi needs: No travel history: recent seatbelt use: always water heater temp set < 120 deg: Yes working smoke detector in home: Yes fire extinguisher in home: Yes carbon monox detector in home: Yes firearms in home: Yes firearms unloaded and locked: Yes do you feel safe at home: Yes Smoking Status: Never smoker second hand exposure: No alcohol intake: former substance use type: does not use during the past year weight has: other well-balanced diet: daily or most days daily servings fruits/ve or more times/day caffeine: Yes Type(s) of exercise: walking frequency: daily duration: 15-30 minutes/day Discharge Assessment & Plan Assessment and Plan Assessment: labor at 34wga, maternal and indication for transfer to tertiary facility Plan of Treatment: transfer to tertiary facility, [facility] (Florentino Bruno accepting) Discharge Plan Discharge Plan [facility] Other facility: [facility] Discharge Data Attending Provider: Maribeth Gerard Admit Date/Time: 09/25/24 14:03
[2024-09-25 16:35] VITALS: BP 136/74
== END 2024-09-25 16:35 | disposition short-term general hospital (02) ==
PROVIDERS: Admitting Provider Obstetrics & Gynecology; Referring Provider Obstetrics & Gynecology; Visit Provider Obstetrics & Gynecology
DX: O60.03 Preterm labor without delivery, third trimester (principal); O13.3 Gestational [pregnancy-induced] hypertension without significant proteinuria, third trimester; E27.40 Unspecified adrenocortical insufficiency; O99.283 Endocrine, nutritional and metabolic diseases complicating pregnancy, third trimester; G43.919 Migraine, unspecified, intractable, without status migrainosus; O99.353 Diseases of the nervous system complicating pregnancy, third trimester; O35.8XX0 Maternal care for other (suspected) fetal abnormality and damage, not applicable or unspecified; Z79.52 Long term (current) use of systemic steroids; Z3A.34 34 weeks gestation of pregnancy
CPT/HCPCS: 36415; 59025; 59050; 80053; 85025; 86850; 86900; 86901; 96360; G0378; G0379; J2405; J3010

== ENCOUNTER → 2025-06-09 12:08 | Outpatient (CLI) | payer OTHER, SELFPAY ==
[2025-06-09 13:24] LABS: Add Manual Diff / Slide Review NO; Hematocrit 36.1 % (36-46); Hemoglobin 12.4 g/dL (12.0-16.0); Lymphocytes Absolute Auto 2100 /uL (1100-4500); Mean Corpuscular HGB Conc 34.5 % (30-36); Mean Corpuscular Hemoglobin 28.7 PG (26-34); Mean Corpuscular Volume 83.2 fL (80-100); Platelet Count 334 X10^3/uL (150-400)
[2025-06-09 13:48] LABS: Alanine Aminotransferase 31 IU/L (<35); Albumin 5.3 g/dL (3.5-5.0); Albumin Globulin Ratio 1.8 (1.0-2.8); Alkaline Phosphatase 64 U/L (38-126); Blood Urea Nitrogen 5 mg/dL (7-17); Calcium 10.1 mg/dL (8.4-10.2); Carbon Dioxide 26 mmol/L (22-32); Chloride 100 mmol/L (98-107); Estimated Glomerular Filt Rate > 60 mL/min (>60); Globulin 3.0 g/dL (1.7-4.1); Glucose 66 mg/dL (70-99); HEMOLYSIS < 15 (0-50); Potassium 3.7 mmol/L (3.4-5.1); Sodium 141 mmol/L (137-145); Total Protein 8.3 g/dL (6.3-8.2)
[2025-06-09 14:19] LABS: TSH w/ Reflex to FT4 1.79 uIU/mL (0.47-4.68)
== END ==
PROVIDERS: PCP Family Medicine; Referring Provider Family Medicine; Visit Provider Family Medicine
DX: E66.811 Obesity, class 1 (principal); E23.2 Diabetes insipidus; E27.40 Unspecified adrenocortical insufficiency
CPT/HCPCS: 36415; 80053; 84146; 84443; 85025

== ENCOUNTER → 2025-06-22 09:21 | Outpatient (CLI) | payer OTHER, SELFPAY ==
--- NOTE | 2025-06-22 09:21 | DI.MRI.S_ITS ---
PROCEDURE: MR BRAIN (PITUITARY) WWO CON INDICATIONS: headaches TECHNIQUE: Noncontrast sagittal and axial FLAIR, axial gradient echo, axial diffusion and ADC through the brain. Thin-slice sagittal and coronal T1 spin echo, coronal T2 fast spin echo through the pituitary. After the administration contrast, optional dynamic coronal T1 spin echo, thin-slice coronal and sagittal T1 spin echo images through the pituitary fossa; axial and coronal and sagittal T1 spin echo with fat saturation through the brain. COMPARISON: None. FINDINGS: Image quality: Excellent. Pituitary Gland: The pituitary gland is small and predominant on the right. Otherwise enhances normally. No pituitary lesions. Pituitary stalk is midline. CSF Spaces: Ventricles are normal in size and shape. Basal cisterns are patent. No extra-axial fluid collections. Brain: No intracranial bleeds or mass effects. No abnormal intracranial enhancement. Lopez-white matter interface is intact. Diffusion weighted images demonstrate no acute ischemic insults. Brainstem is normal. Normal intravascular flow voids are present. Skull and face: Calvarial marrow is normal in signal. Orbits appear normal. Sinuses: Sinuses and mastoids are clear. IMPRESSION: The pituitary gland is small, otherwise normal. No pituitary lesions. No acute intracranial abnormalities or abnormal intracranial enhancement. Dictated by: Didier Baeza M.D. on 06/22/2025 at 12:04 Approved by: Didier Baeza M.D. on 06/22/2025 at 12:10
== END ==
PROVIDERS: PCP Family Medicine; Referring Provider Family Medicine; Visit Provider Family Medicine
DX: G43.911 Migraine, unspecified, intractable, with status migrainosus (principal); Z98.890 Other specified postprocedural states
CPT/HCPCS: 70553; A9579